=== PATIENT | female | born 1990 | race African-American/Black ===

== ENCOUNTER 2017-09-11 11:51 | Emergency (ER) | payer OTHER ==
[~2017-09-11] VITALS: Ht 165.1 cm; Wt 72.6 kg
[~2017-09-11 11:51] MED LIST: ADVAIR 100-501 EACH; ALBUTEROL2.5 MG/0.1; NASONEX17 GM; PREDNISONE 1 MG1 M1; SINGULAIR4 MG; ZPAK PO
[2017-09-11] MEDS ORDERED: DULERA 100 MCG/13 GM INH (11:57)
[2017-09-11] MEDS ORDERED: PREDNISONE 20 M20 M1 PO (12:22)
[2017-09-11] MEDS ORDERED: VENTOLIN HFA 1818 GM INH (12:22)
[2017-09-11 13:13] VITALS: BP 132/85
== END 2017-09-11 13:15 | disposition home or self-care (01) ==
LOC: M.ERS 11:51
DX: J45.901 Unspecified asthma with (acute) exacerbation (principal); Z88.0 Allergy status to penicillin; Z88.5 Allergy status to narcotic agent